=== PATIENT | female | born 1990 | race Hispanic/Latino ===

== ENCOUNTER 2025-05-30 22:01 | Emergency (ER) | payer MEDICAID ==
[~2025-05-30] VITALS: Ht 167.6 cm; Wt 96.6 kg
--- NOTE | 2025-05-30 22:25 | ERN ---
ED Note History of Present Illness Stated Complaint: C/O SYNCOPE EPISODE AT WORK, DIZZY SPELLS; 8 WKS Chief Complaint: Syncope Time Seen by MD: 22:06 Dictation: 4-YEAR-OLD FEMALE PRESENTS TO ER WITH COMPLAINTS OF POSSIBLE SYNCOPAL EPISODE EARLIER TODAY. PATIENT STATES WHO IS SITTING IN HER CHAIR SHE LAID HER HEAD DOWN TO REST ON HER DESK AT WORK. STATES HER LAST MOVED HER TO WAKE HER UP BUT SHE WOULD NOT WAKE UP, THEN WHEN SHE OPENS HER EYES HER BOSS TOLD HER SHE HAD A SYNCOPAL EPISODE AND TOLD HER TO COME GET EVALUATED IN THE EMERGENCY ROOM. Allergies: Coded Allergies: No Known Allergies (Unverified Allergy, Unknown, 05/30/25) Home Meds Active Scripts Ondansetron (Ondansetron Odt) 4 Mg Tab.rapdis, 1 TAB PO Q6HPRN PRN for n ausea/vomiting for 4 Days, #16 TAB 0 Refills Prov:KACI CERRATO NP 05/31/25 Cephalexin (Cephalexin) 500 Mg Tablet, 1 TAB PO TID for 10 Days, #30 TAB 0 Refills Prov:KACI CERRATO NP 05/31/25 Past Medical History Past Medical History: No Pertinent History Surgical History: Cholecystectomy, LMP: Mar 26, 2025 : 6 Para: 4 Aborts: 1 Review of System Dictation CONSTITUTIONAL: NEGATIVE FOR FEVER,CHILLS, AND WEIGHT LOSS EYES: NEGATIVE FOR INJURY, PAIN,REDNESS, AND DISCHARGE ENT: NEGATIVE FOR INJURY,PAIN OR SWELLING CARDIOVASCULAR: NEGATIVE FOR CHEST PAIN, PALPITATIONS, AND EDEMA RESPIRATORY: NEGATIVE FOR SHORTNESS OF BREATH, COUGH, WHEEZING, AND PLEURITIC CHEST PAIN ABDOMEN/GI: NEGATIVE FOR ABDOMINAL PAIN. POSITIVE NAUSEA AND VOMITING BACK: NEGATIVE FOR INJURY AND PAIN : NEGATIVE FOR INJURY, BLEEDING AND DISCHARGE MS/EXTREMITY: NEGATIVE FOR INJURY AND DEFORMITY SKIN: NEGATIVE FOR RASH, AND DISCOLORATION NEURO: NEGATIVE FOR HEADACHE, WEAKNESS, NUMBNESS, TINGLING, AND SEIZURE, POSITIVE FOR POSSIBLE SYNCOPAL EPISODE PSYCH: NEGATIVE FOR SUICIDE IDEATION, HOMICIDAL IDEATION, AND HALLUCINATIONS ALLERGY/IMMUNOLOGY: NEGATIVE FOR HIVES, RASH, AND ALLERGIES Initial Vital Sign VS Vital Signs Date Time Temp Pulse Resp B/P (MAP) Pulse Ox O2 Delivery O2 Flow Rate FiO2 05/30/25 22:06 97.7 77 20 106/52 98 Room Air 05/30/25 22:23 0 21 Physical Exam Dictation GENERAL: AWAKE, ALERT, NAD HEAD/FACE: NORMOCEPHALIC, ATRAUMATIC EYES: PERRL, EOMI, VISION AT BASELINE ENT: ORAL CAVITY CLEAR, TMS CLEAR, NO SIGNS OF INFECTION NECK: TRACHEA MIDLINE, SUPPLE, NO NUCHAL RIGIDITY CARDIOVASCULAR: RRR, RESPIRATORY: CTAB, NO RESPIRATORY DISTRESS, NO RALES OR WHEEZES ABDOMEN: SOFT, NORMAL BOWEL SOUNDS, NO GUARDING OR REBOUND. FUNDAL HEIGHT AT 24 WEEKS MEASURED SKIN: WARM, DRY, NORMAL TURGOR, NO RASH MS/EXTREMITY: PULSES EQUAL, NO CYANOSIS, NEUROVASCULAR INTACT, FROM NEURO: COAX4, GCS 15, STRENGTH 5/5, NORMAL GAIT, PSYCH: NORMAL BEHAVIOR, MOOD, AND AFFECT NORMAL Results (Laboratory/Radiology) Laboratory/Radiology EKG: (+) NSR Ultrasound Comment: CANE WEIGHER COMMENTS PATIENT HAS SINGLE IUP. POSITIVE MOVEMENT WITH 146 BEATS PER MINUTE NOTED, PATIENT MEASURING 25 WEEKS AND 6 DAYS. ED Course ED Course Medical Decision Making MDM 34-YEAR-OLD FEMALE PRESENTS TO ER WITH COMPLAINTS OF POSSIBLE SYNCOPAL EPISODE EARLIER TODAY. PATIENT STATES WHO IS SITTING IN HER CHAIR SHE LAID HER HEAD DOWN TO REST ON HER DESK AT WORK. STATES HER LAST MOVED HER TO WAKE HER UP BUT SHE WOULD NOT WAKE UP, THEN WHEN SHE OPENS HER EYES HER BOSS TOLD HER SHE HAD A SYNCOPAL EPISODE AND TOLD HER TO COME GET EVALUATED IN THE EMERGENCY ROOM. PATIENT DID NOT FALL TO THE FLOOR PATIENT REMAINED ON HER CHAIR AT ALL TIMES. A ND STATES SHE HAS HAD NAUSEA AND VOMITING SINCE YESTERDAY DENIES ANY ABDOMINAL PAIN ONLY DISCOMFORT AND DENIES VAGINAL BLEEDING. PATIENT STATES SHE IS UNKNOWN WEEKS. NO CARE SINCE SHE JUST GOT HER MEDICAID APPROVED YESTERDAY. PATIENT STATES KNOWN HISTORY OF RH POSITIVE, A1 L 4. CBC, BMP, UA LABS, TEST-QUANT ORDERED. NS IV HYDRATION ORDERED. ZOFRAN ORDERED FOR NAUSEA AND VOMITING. OB ULTRASOUND ORDERED PATIENT'S SYMPTOMS IMPROVED WITH MEDICATIONS IN ER. PRESCRIPTION FOR ABX AND ANTIMETIC MEDS SENT TO PHARMACY. PATIENT ADVISED TO FOLLOW-UP WITH OBGYN. PATIENT VSS, NAD, NONTOXIC, STABLE FOR DISCHARGE. PT GIVEN DISCHARGE INSTRUCTIONS IN [place]MAN TERMS AND UNDERSTOOD, ALL QUESTIONS ANSWERED. PT WILL FOLLOW UP WITH PCP AND RETURN TO THE ER IF WORSE. DX & DISP Disposition: Discharge Departure Impression: Primary Impression: UTI (urinary tract infection) Additional Impressions: Near syncope, Vomiting, Hyperemesis gravidarum, Condition: Stable Scripts Ondansetron (Ondansetron Odt) 4 Mg Tab.rapdis 1 TAB PO Q6HPRN PRN for nausea/vomiting for 4 Days, #16 TAB 0 Refills Prov: KACI CERRATO NP 05/31/25 Cephalexin (Cephalexin) 500 Mg Tablet 1 TAB PO TID for 10 Days, #30 TAB 0 Refills Prov: KACI CERRATO NP 05/31/25 Additional Instructions: FOLLOW-UP WITH YOUR OB-WORKERS COMPENSATION ADMINISTRATOR IN 24-72 HOURS AND IN THE EVENT IF SYMPTOMS WORSEN OR AN EMERGENCY OVERNIGHT REPORT TO THE ED IMMEDIATELY Referrals: NONE (PCP) KACI CERRATO NP May 30, 2025 22:25
[2025-05-30] MEDS: 0.9%NACL 1000ML 1,000 ML IV ONE (22:33)
[2025-05-30 22:50] LABS: IMMATURE GRANULOCYTE ABSOLUTE 0.16 K/uL (0-1); NUCLEATED RED BLOOD CELLS 0.0 % (0.0-0.19); PLATELET COUNT (AUTO) 202 K/uL (130-400); RED BLOOD CELL COUNT(AUTO) 3.59 MIL/uL (4.00-5.50); RED CELL DISTRIBUTION WIDTH 13.5 % (11.0-15.5); WHITE BLOOD COUNT (AUTO) 12.8 K/uL (4.8-10.8)
[2025-05-30 23:00] LABS: CREATININE 0.4 mg/dL (0.5-1.0); GLOMERULAR FILTR. RATE CALC 135.0 mL/min (>90); GLUCOSE,RANDOM 88.0 mg/dL (70-105); SODIUM SERUM 137.0 mmol/L (136-145); UREA NITROGEN, BLOOD 7.0 mg/dL (7-18)
[2025-05-30 23:32] LABS: ADD UA MICROSCOPIC YES; APPEARANCE,URINE CLOUDY (CLEAR); GLUCOSE, URINE (UA) NEGATIVE (NEGATIVE); LEUKOCYTE ESTERASE ,URINE NEGATIVE Leu/uL (NEGATIVE); NITRATE,URINE 2+ (NEGATIVE); OCCULT BLOOD,URINE NEGATIVE (NEGATIVE)
[2025-05-30 23:33] LABS: HCG,QUALITATIVE URINE POSITIVE (NEGATIVE)
[2025-05-30 23:35] LABS: SQUAMOUS EPITHELIAL CELL,UR RARE /HPF (0-2)
--- NOTE | 2025-05-31 00:15 | HMCIMG ---
EXAM: US Obstetrical, Complete >14 weeks. CLINICAL HISTORY: Vomiting, abdominal discomfort TECHNIQUE: Transabdominal imaging of the maternal pelvis and a >14 week gestation with image documentation. COMPARISON: None provided. FINDINGS: FETUS: Single living intrauterine gestation with cardiac activity and movement present. POSITION: Cephalic presentation, longitudinal lie. HEART RATE: heart rate: 140 bpm. BIOMETRICS: BPD: 6.61 cm - 26 weeks 4 days Head circumference: 24.54 cm - 26 weeks 4 days Abdominal circumference: 21.07 cm - 25 weeks 4 days Femur length: 4.53 cm - 25 weeks 0 days Composite gestational age: 25 weeks 6 days Estimated weight: 822 g ??? 120 g ANATOMIC SURVEY: Lateral ventricles, choroid plexus, stomach, kidneys, urinary bladder, spine, cord insertion, three-vessel cord visualized, and unremarkable. PLACENTA: Fundal, grade 2, no previa. AMNIOTIC FLUID: IGOR: 15.37 cm - within normal limits. CERVIX: Closed. IMPRESSION: Single viable intrauterine at 25 weeks 6 days. No acute abnormality. /[facility]
[2025-05-31] MEDS ORDERED: CEPH500T PO (00:33)
[2025-05-31 00:49] VITALS: BP 122/65; PULSE 88; RESP 18; TEMP 97.3; O2SAT 98
[2025-05-31] MEDS ORDERED: ONDA-243 PO (00:50)
--- NOTE | 2025-05-31 06:16 | EKG ---
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
== END 2025-05-31 00:48 | disposition home or self-care (01) ==
LOC: EDH 22:01
DX: O23.41 Unspecified infection of urinary tract in pregnancy, first trimester (principal); N39.0 Urinary tract infection, site not specified; O26.891 Other specified pregnancy related conditions, first trimester; R10.2 Pelvic and perineal pain; Z3A.10 10 weeks gestation of pregnancy; Z90.49 Acquired absence of other specified parts of digestive tract; Z79.899 Other long term (current) drug therapy
CPT/HCPCS: 99285; 96374; 76801; 96361; 80048; 84702; 85025; 87086 ×2; 87186; 81001; 81025; 36415; 93005; 96375; J7030; J2405 ×2; J0696